=== PATIENT | female | born 1975 | race African-American/Black ===

== ENCOUNTER 2016-10-02 08:17 | Emergency (ER) | payer OTHER ==
--- NOTE | ~2016-10-02 | CT71 ---
[facility] A Service [facility] RADIOLOGY TEXT RESULTS PATIENT: COLT VILLELA LOCATION: SED : 71 UNIT #: [id number] AGE: [address]: Israel Cooney DO SEX: F ORDER DR: [id number] [place] [id number] E MR#: [id number] Acc #: [id number] NAME: COLT VILLELA : 1975 SEX: F STUDY DATE/TIME: 10/02/2016 8:23 UNIT: SED ROOM: STUDY DESCRIPTION: CT Head Wo Contrast Attending Physician: Israel Cooney Primary Care Physician: Israel Al M.D. MEDICAL IMAGING REPORT This report is preliminary unless electronic signature is present. EXAM Head CT without. DATE OF EXAM 10/02/2016 HISTORY Head pain. Patient fell down the steps yesterday night and hit her face and chin and back with pain. COMMENT Routine noncontrast head CT is reviewed. COMPARISON There is a separate facial bone CT, and please refer to that report. TECHNIQUE NOTE: This CT exam was performed with one or more of the following radiation dose reduction techniques: automatic exposure control, adjustment of mA and/or kV according to patient size, and iterative reconstruction. FINDINGS There is no displaced calvarial fracture. The mastoid air cells are clear. The visualized paranasal sinuses are clear. There is no evidence for acute intracranial hemorrhage or extraaxial fluid collection. The ventricles are normal in size and configuration and the reyes-white junction is well-maintained. The basilar cisterns are patent. There is no intracranial mass effect. IMPRESSION Negative noncontrast head CT. [facility] A Service [facility] RADIOLOGY TEXT RESULTS PATIENT: CLOT VILLELA LOCATION: SED : 71 UNIT #: [id number] AGE: [address]: Isarel Cooney DO SEX: F ORDER DR: Dictated by... Soraida A. Crecelius, M.D. THIS IS AN ELECTRONICALLY VERIFIED REPORT Soraida Grissom M.D. at 10/03/2016 6:19 AM FIDELINA/ez TD: 10/02/2016 21:21 JOB #: [id number] MEDICAL IMAGING REPORT
--- NOTE | ~2016-10-02 | CR181 ---
[facility] A Service of [facility] RADIOLOGY TEXT RESULTS PATIENT: COLT VILLELA LOCATION: SED : 71 UNIT #: [id number] AGE: [address]: Israel Cooney DO SEX: F ORDER DR: [id number] [place] [id number] E MR#: [id number] Acc #: [id number] NAME: COLT VILLELA : 1975 SEX: F STUDY DATE/TIME: 10/02/2016 8:19 UNIT: SED ROOM: STUDY DESCRIPTION: CR Lumbar Spine 2 or 3 Views Attending Physician: Israel Cooney Ordering Physician: Last Yin M.D. Primary Care Physician: Israel Al M.D. MEDICAL IMAGING REPORT This report is preliminary unless electronic signature is present. EXAM Lumbar spine series, 2 or 3 views. DATE OF EXAM 10/02/2016 CLINICAL HISTORY Low back pain. Fell down stairs yesterday, 8 steps, and hit back, head and face. COMMENT AP, lateral and lumbosacral views of the lumbar spine reviewed. Spine is numbered assuming S1 is transitional and partially lumbarized. There is levoconvex lumbar scoliosis. There is mild exaggeration of lumbar lordosis. There is no acute fracture suspected. Probably some facet degenerative change lower lumbar sacral levels. IMPRESSION No acute fracture or traumatic malalignment is suspected. Probably some facet degenerative change lower lumbar sacral levels. Spine is numbered assuming that S1 is transitional and partially lumbarized. There is mild levoconvex scoliosis and some exaggeration of lumbar lordosis. Dictated by... Soraida Grissom M.D. THIS IS AN ELECTRONICALLY VERIFIED REPORT Soraida Grissom M.D. at 10/03/2016 6:19 AM FIDELINA/ez TD: 10/02/2016 21:09 [facility] A Service of [facility] RADIOLOGY TEXT RESULTS PATIENT: COLT VILLELA LOCATION: SED : 71 UNIT #: [id number] AGE: [address]: Israel Cooney DO SEX: F ORDER DR: ED #: [id number] MEDICAL IMAGING REPORT
--- NOTE | ~2016-10-02 | CT101 ---
[facility] A Service of [facility] RADIOLOGY TEXT RESULTS PATIENT: COLT VILLELA LOCATION: SED : 71 UNIT #: [id number] AGE: [address]: Israel Cooney DO SEX: F ORDER DR: [id number] [place] [id number] E MR#: [id number] Acc #: [id number] NAME: COLT VILLELA : 1975 SEX: F STUDY DATE/TIME: 10/02/2016 8:03 UNIT: SED ROOM: STUDY DESCRIPTION: CT Maxillofacial Area Wo Cont Attending Physician: Israel Cooney Ordering Physician: Last Yin M.D. Primary Care Physician: Israel Al M.D. MEDICAL IMAGING REPORT This report is preliminary unless electronic signature is present. EXAM CT maxillofacial. DATE OF EXAM 10/02/2016 HISTORY Fell down the stairs yesterday night. Hit face and chin area/back, has head pain. COMMENT CT of the maxillofacial bones performed in the axial plane without contrast followed by coronal reconstructed images. COMPARISON There is a separate head CT, and please refer to the report. TECHNIQUE NOTE: This CT exam was performed with one or more of the following radiation dose reduction techniques: automatic exposure control, adjustment of mA and/or kV according to patient size, and iterative reconstruction. FINDINGS There is no mandibular fracture. The patient is partially edentulous. The temporomandibular joints are located. The mastoid air cells where visualized are clear. The paranasal sinuses are essentially clear with only minimal mucosal thickening appreciated and no sinus air-fluid level. There is mildly comminuted minimally depressed fracture of nasal bones bilaterally, age indeterminate. Please correlate for evidence of soft tissue swelling in the region of the nasal bones. No other possible facial bone fracture is seen. There is soft tissue gas seen under the right side of the mandible presumably at the site of injury/laceration. [facility] A Service of [facility] RADIOLOGY TEXT RESULTS PATIENT: COLT VILLELA LOCATION: SED : 71 UNIT #: [id number] AGE: [address]: Israel Cooney DO SEX: F ORDER DR: Please correlate with physical exam findings. There is some adjacent soft tissue swelling. The globes are intact. The lenses are located. There is no retrobulbar hematoma. IMPRESSION 1. Soft tissue injury right inferior aspect of the mandible, right chin area consistent with provided history. No mandibular fracture. Temporomandibular joints located. 2. Minimally depressed comminuted nasal bone fractures bilaterally are age indeterminate. Please correlate with findings on physical exam. The paranasal sinuses are clear. Dictated by... Soraida Grissom M.D. THIS IS AN ELECTRONICALLY VERIFIED REPORT Soraida Grissom M.D. at 10/03/2016 6:19 AM FIDELINA/ez TD: 10/02/2016 21:24 JOB #: [id number] MEDICAL IMAGING REPORT
[~2016-10-02 08:17] MED LIST: CIPRO PO; NO MEDICATIONS; PHENERGAN25 M1 PO; SUDAFED PO; TYLENOL #3 PO; XANAX0.5 MG PO; ZOFRAN ODT4 MG PO
== END 2016-10-02 09:14 | disposition home or self-care (01) ==
LOC: SED 08:17
DX: S33.5XXA Sprain of ligaments of lumbar spine, initial encounter (principal); S00.83XA Contusion of other part of head, initial encounter; S30.810A Abrasion of lower back and pelvis, initial encounter; F41.9 Anxiety disorder, unspecified; Z86.711 Personal history of pulmonary embolism; W01.0XXA Fall on same level from slipping, tripping and stumbling without subsequent striking against object, initial encounter; Y92.009 Unspecified place in unspecified non-institutional (private) residence as the place of occurrence of the external cause
CPT/HCPCS: 70450; 70486; 72100; 99284

== ENCOUNTER 2016-12-19 02:08 | Emergency (ER) | payer OTHER ==
[2016-12-19 03:46] LABS: BASOPHIL% 0.3 % (0-2.5); DIFF IND NO; EOSINOPHIL% 0.2 % (0.0-7.0); HEMATOCRIT 33.9 % (35.0-45.0); HEMOGLOBIN 10.8 gm/dL (12.0-16.0); LYMPHOCYTE# 0.8 X10e3 (1.0-3.5); LYMPHOCYTE% 5.3 % (17.0-45.0); MEAN CELL VOLUME 79.9 FL (83-96); MEAN CORPUSCULAR HEMOGLOBIN 25.4 PG (28-34); MEAN CORPUSCULAR HGB CONC 31.8 g/dL (30-36); MEAN PLATELET VOLUME 8.3 FL (6.5-11.5); MONOCYTE# 1.2 X10e3 (0-1.0); MONOCYTE% 8.2 % (3.0-12.0); NEUTROPHIL# 12.6 X10e3 (1.5-7.1); PLATELET COUNT 251 X10e3 (140-420); RED BLOOD COUNT 4.24 X10e (3.90-5.30); RED CELL DISTRIBUTION WIDTH 17.2 % (11.0-15.5); WHITE BLOOD COUNT 14.7 X10e3 (4.0-10.5)
[2016-12-19 04:09] LABS: URINE SOURCE CLEAN CATCH
[2016-12-19 04:15] LABS: URINE APPEARANCE CLOUDY; URINE BILIRUBIN NEG (NEG); URINE BLOOD 3+ (NEG); URINE COLOR RED; URINE GLUCOSE NEG (NEG); URINE KETONE 3+ (NEG); URINE LEUKOCYTE ESTERASE 2+ (NEG); URINE NITRATE NEG (NEG); URINE PH 8.5 (5-8); URINE PROTEIN 1+ (NEG); URINE SPECIFIC GRAVITY 1.014 (1.003-1.035)
[2016-12-19 04:17] LABS: CULTURE INDICATED? YES; URBCS1 AUWI INNUM /[HPF] (0-2); URINE BACTERIA AUWI NEG (NEGATIVE); URINE SQUAMOUS EPITHELIAL CELL FEW /[HPF]; UWBCS1 AUWI 25-50 (0-5)
[2016-12-19 04:30] LABS: ALBUMIN SERUM 4.4 g/dL (3.5-5.0); BILIRUBIN, DIRECT 0.1 mg/dL (0.0-0.2); BILIRUBIN,INDIRECT 0.6 mg/dL (0.0-0.9); BILIRUBIN,TOTAL 0.7 mg/dL (0.2-2.0); BUN/CREATININE RATIO 7.14; CREATININE SERUM 0.7 mg/dL (0.6-1.4)
[2016-12-19 04:31] LABS: POTASSIUM 2.9 mmol/L (3.5-5.1)
== END 2016-12-19 06:39 | disposition home or self-care (01) ==
LOC: CED 02:08
PROVIDERS: Emergency Medicine
DX: G89.18 Other acute postprocedural pain (principal); R10.9 Unspecified abdominal pain
CPT/HCPCS: 36415; 80048; 80076; 81003; 82150; 83690; 85025; 87086; 96361; 96374; 96375; 99284; C9113; J0780; J2270